=== PATIENT | male | born 1945 | race Caucasian/White ===

== ENCOUNTER → 2017-04-03 | Outpatient (CLI) | payer MEDICARE ==
[~2017-04-03] MED LIST: AMLODIPINE10 MG PO; ASPIRIN81 M1 PO; ENALAPRIL MALEA10 MG PO; GLIPIZIDE5 MG PO; JANUVIA50 MG PO; LABETALOL100 MG PO; METFORMIN500 MG PO; QUINAPRIL40 MG PO; SIMVASTATIN40 MG PO; VICODIN ES 7501 TAB PO; ZOFRAN ODT4 MG SL
[2017-04-03 09:42] LABS: HEMOGLOBIN A1c 8.3 % (4.8-5.6)
[2017-04-03 09:55] LABS: POTASSIUM 4.5 mmol/L (3.5-5.1)
[2017-04-03 10:01] LABS: ALBUMIN 3.6 gm/dl (3.1-4.5); BILIRUBIN, TOTAL 0.4 mg/dl (0.2-1.0); TOTAL PROTEIN 7.3 gm/dL (6.4-8.2)
== END | disposition home or self-care (01) ==
LOC: LAB 09:09
PROVIDERS: Family Medicine
DX: I10 Essential (primary) hypertension (principal); E11.9 Type 2 diabetes mellitus without complications; E78.00 Pure hypercholesterolemia, unspecified

== ENCOUNTER → 2017-07-19 | Outpatient (CLI) | payer MEDICARE ==
[2017-07-19 12:06] LABS: ALBUMIN 3.7 gm/dl (3.1-4.5); CREATININE 1.52 mg/dL (0.70-1.30); POTASSIUM 4.3 mmol/L (3.5-5.1); TOTAL PROTEIN 7.6 gm/dL (6.4-8.2)
== END | disposition home or self-care (01) ==
LOC: LAB 10:57
PROVIDERS: Family Medicine
DX: E11.9 Type 2 diabetes mellitus without complications (principal); E78.00 Pure hypercholesterolemia, unspecified; E55.9 Vitamin D deficiency, unspecified; I10 Essential (primary) hypertension

== ENCOUNTER → 2017-09-25 | Outpatient (CLI) | payer MEDICARE ==
[2017-09-25 12:13] LABS: ALBUMIN 3.8 gm/dl (3.1-4.5); CREATININE 1.47 mg/dL (0.70-1.30); POTASSIUM 4.5 mmol/L (3.5-5.1)
[2017-09-25 12:21] LABS: TOTAL PROTEIN 7.9 gm/dL (6.4-8.2)
== END | disposition home or self-care (01) ==
LOC: LAB 10:52
PROVIDERS: Family Medicine
DX: E78.00 Pure hypercholesterolemia, unspecified (principal); I10 Essential (primary) hypertension; E11.9 Type 2 diabetes mellitus without complications

== ENCOUNTER → 2017-12-21 | Outpatient (CLI) | payer MEDICARE ==
[2017-12-21 12:03] LABS: ALBUMIN 3.9 gm/dl (3.1-4.5); CREATININE 1.65 mg/dL (0.70-1.30); POTASSIUM 4.7 mmol/L (3.5-5.1)
== END | disposition home or self-care (01) ==
LOC: LAB 11:16
PROVIDERS: Family Medicine
DX: E11.9 Type 2 diabetes mellitus without complications (principal); E78.00 Pure hypercholesterolemia, unspecified; I10 Essential (primary) hypertension; E55.9 Vitamin D deficiency, unspecified

== ENCOUNTER → 2018-04-18 | Outpatient (CLI) | payer MEDICARE ==
[2018-04-18 11:17] LABS: ALBUMIN 3.6 gm/dl (3.1-4.5); CREATININE 1.69 mg/dL (0.70-1.30); POTASSIUM 4.6 mmol/L (3.5-5.1)
[2018-04-18 11:18] LABS: TOTAL PROTEIN 7.3 gm/dL (6.4-8.2)
== END | disposition home or self-care (01) ==
LOC: LAB 10:14
PROVIDERS: Family Medicine
DX: I10 Essential (primary) hypertension (principal); E11.9 Type 2 diabetes mellitus without complications; E78.00 Pure hypercholesterolemia, unspecified

== ENCOUNTER → 2018-07-23 | Outpatient (CLI) | payer MEDICARE ==
[2018-07-23 11:19] LABS: ALBUMIN 4.1 gm/dl (3.1-4.5); CREATININE 1.46 mg/dL (0.70-1.30); POTASSIUM 4.4 mmol/L (3.5-5.1)
== END ==
LOC: LAB 10:13
PROVIDERS: Family Medicine
DX: I10 Essential (primary) hypertension (principal); E11.9 Type 2 diabetes mellitus without complications; E78.00 Pure hypercholesterolemia, unspecified

== ENCOUNTER → 2019-05-07 | Outpatient (CLI) | payer MEDICARE ==
[2019-05-07 11:14] LABS: HEMATOCRIT 43.9 % (42.0-52.0); HEMOGLOBIN 14.7 g/dl (14.0-18.0); MEAN CORPUSCULAR HGB 30.1 pg (27.0-31.0); MEAN CORPUSCULAR HGB CONC 33.5 g/dl (33.0-37.0); MEAN PLATELET VOLUME 11.1 fl (9.6-12.3); RED BLOOD COUNT 4.88 10*6/uL (4.50-5.90); RED CELL DISTRI WIDTH 12.5 % (0-14.5); WHITE BLOOD COUNT 6.1 10*3/uL (4.8-10.8)
[2019-05-07 11:50] LABS: ALBUMIN 3.7 gm/dl (3.1-4.5); CREATININE 1.54 mg/dL (0.70-1.30); POTASSIUM 4.7 mmol/L (3.5-5.1); TOTAL PROTEIN 7.7 gm/dL (6.4-8.2)
== END | disposition home or self-care (01) ==
LOC: LAB 10:44
PROVIDERS: Family Medicine
DX: E78.00 Pure hypercholesterolemia, unspecified (principal); I10 Essential (primary) hypertension; E11.9 Type 2 diabetes mellitus without complications; R53.83 Other fatigue; M19.90 Unspecified osteoarthritis, unspecified site

== ENCOUNTER → 2019-08-14 | Outpatient (CLI) | payer MEDICARE ==
[2019-08-14 12:18] LABS: HEMATOCRIT 42.6 % (42.0-52.0); HEMOGLOBIN 14.3 g/dl (14.0-18.0); MEAN CELL VOLUME 87.8 fl (80.0-94.0); MEAN CORPUSCULAR HGB 29.5 pg (27.0-31.0); MEAN CORPUSCULAR HGB CONC 33.6 g/dl (33.0-37.0); MEAN PLATELET VOLUME 10.8 fl (9.6-12.3); RED BLOOD COUNT 4.85 10*6/uL (4.50-5.90); RED CELL DISTRI WIDTH 11.9 % (0-14.5); WHITE BLOOD COUNT 4.9 10*3/uL (4.8-10.8)
[2019-08-14 12:32] LABS: ALBUMIN 3.7 gm/dl (3.1-4.5); CREATININE 1.46 mg/dL (0.70-1.30); POTASSIUM 4.7 mmol/L (3.5-5.1); TOTAL PROTEIN 7.4 gm/dL (6.4-8.2)
== END | disposition home or self-care (01) ==
LOC: LAB 11:28
PROVIDERS: Family Medicine
DX: E11.9 Type 2 diabetes mellitus without complications (principal); I10 Essential (primary) hypertension; E55.9 Vitamin D deficiency, unspecified; E78.00 Pure hypercholesterolemia, unspecified; M19.90 Unspecified osteoarthritis, unspecified site

== ENCOUNTER → 2019-11-01 | Outpatient (CLI) | payer MEDICARE ==
[2019-11-01 09:17] LABS: HEMATOCRIT 44.4 % (42.0-52.0); HEMOGLOBIN 14.8 g/dl (14.0-18.0); MEAN CELL VOLUME 88.3 fl (80.0-94.0); MEAN CORPUSCULAR HGB 29.4 pg (27.0-31.0); MEAN CORPUSCULAR HGB CONC 33.3 g/dl (33.0-37.0); MEAN PLATELET VOLUME 11.1 fl (9.6-12.3); RED BLOOD COUNT 5.03 10*6/uL (4.50-5.90); RED CELL DISTRI WIDTH 11.9 % (0-14.5); WHITE BLOOD COUNT 6.4 10*3/uL (4.8-10.8)
[2019-11-01 09:46] LABS: ALBUMIN 3.5 gm/dl (3.1-4.5); CREATININE 1.77 mg/dL (0.70-1.30); POTASSIUM 4.5 mmol/L (3.5-5.1); TOTAL PROTEIN 7.1 gm/dL (6.4-8.2)
== END | disposition home or self-care (01) ==
LOC: LAB 09:00
PROVIDERS: Family Medicine
DX: I10 Essential (primary) hypertension (principal); E11.9 Type 2 diabetes mellitus without complications; E55.9 Vitamin D deficiency, unspecified

== ENCOUNTER → 2019-12-16 | Outpatient (CLI) | payer MEDICARE | LOC: CT 08:48 | DX: K40.20 Bilateral inguinal hernia, without obstruction or gangrene, not specified as recurrent (principal); N40.0 Benign prostatic hyperplasia without lower urinary tract symptoms; K57.30 Diverticulosis of large intestine without perforation or abscess without bleeding; K44.9 Diaphragmatic hernia without obstruction or gangrene; I70.0 Atherosclerosis of aorta; M54.9 Dorsalgia, unspecified ==

== ENCOUNTER → 2020-08-07 | Outpatient (CLI) | payer MEDICARE ==
[2020-08-07 11:31] LABS: HEMATOCRIT 42.6 % (42.0-52.0); MEAN CELL VOLUME 86.4 fl (80.0-94.0); MEAN CORPUSCULAR HGB 28.4 pg (27.0-31.0); MEAN CORPUSCULAR HGB CONC 32.9 g/dl (33.0-37.0); MEAN PLATELET VOLUME 10.5 fl (9.6-12.3); RED BLOOD COUNT 4.93 10*6/uL (4.50-5.90); RED CELL DISTRI WIDTH 12.7 % (0-14.5); WHITE BLOOD COUNT 6.6 10*3/uL (4.8-10.8)
[2020-08-07 11:49] LABS: ALBUMIN 3.5 gm/dl (3.1-4.5); CREATININE 1.54 mg/dL (0.70-1.30); POTASSIUM 4.4 mmol/L (3.5-5.1); TOTAL PROTEIN 7.4 gm/dL (6.4-8.2)
== END | disposition home or self-care (01) ==
LOC: LAB 10:59
PROVIDERS: ATTEND Family Medicine
DX: Z12.5 Encounter for screening for malignant neoplasm of prostate (principal); I10 Essential (primary) hypertension; E11.9 Type 2 diabetes mellitus without complications; E78.00 Pure hypercholesterolemia, unspecified

== ENCOUNTER → 2021-02-25 | Outpatient (CLI) | payer MEDICARE ==
[2021-02-25 11:08] LABS: HEMATOCRIT 42.4 % (42.0-52.0); MEAN CELL VOLUME 86.5 fl (80.0-94.0); MEAN CORPUSCULAR HGB 28.6 pg (27.0-31.0); MEAN PLATELET VOLUME 10.4 fl (9.6-12.3); RED BLOOD COUNT 4.9 10*6/uL (4.50-5.90); RED CELL DISTRI WIDTH 12.2 % (0-14.5); WHITE BLOOD COUNT 6.3 10*3/uL (4.8-10.8)
[2021-02-25 11:47] LABS: ALBUMIN 3.2 gm/dl (3.1-4.5); CREATININE 1.55 mg/dL (0.70-1.30); POTASSIUM 4.2 mmol/L (3.5-5.1)
== END | disposition home or self-care (01) ==
LOC: LAB 10:32
PROVIDERS: ATTEND Family Medicine
DX: M17.0 Bilateral primary osteoarthritis of knee (principal); I70.203 Unspecified atherosclerosis of native arteries of extremities, bilateral legs; E11.9 Type 2 diabetes mellitus without complications; I10 Essential (primary) hypertension; E78.00 Pure hypercholesterolemia, unspecified; M25.761 Osteophyte, right knee; M25.762 Osteophyte, left knee

== ENCOUNTER → 2021-05-27 | Outpatient (CLI) | payer MEDICARE ==
[2021-05-27 11:06] LABS: ALBUMIN 3.2 gm/dl (3.1-4.5)
[2021-05-27 11:10] LABS: CREATININE 1.7 mg/dL (0.70-1.30); TOTAL PROTEIN 7.1 gm/dL (6.4-8.2)
== END | disposition home or self-care (01) ==
LOC: LAB 10:16
PROVIDERS: ATTEND Family Medicine
DX: E11.9 Type 2 diabetes mellitus without complications (principal); I10 Essential (primary) hypertension; E78.00 Pure hypercholesterolemia, unspecified

== ENCOUNTER 2021-08-16 14:44 | Inpatient (IN) | payer MEDICARE ==
[~2021-08-16] VITALS: Ht 170.1 cm; Wt 91.3 kg
[2021-08-16 15:04] VITALS: BP 180/84
[2021-08-16 15:18] LABS: BASO % 0.3 % (0.0-1.0); HEMATOCRIT 39.4 % (42.0-52.0); LYMPH # 0.5 10*3/uL (1.3-4.4); LYMPH % 12.7 % (27.0-41.0); MEAN CELL VOLUME 85.3 fl (80.0-94.0); MEAN CORPUSCULAR HGB 28.6 pg (27.0-31.0); MEAN CORPUSCULAR HGB CONC 33.5 g/dl (33.0-37.0); MEAN PLATELET VOLUME 10.3 fl (9.6-12.3); MONO # 0.4 10*3/uL (0.1-1.0); MONO % 10.3 % (3.0-9.0); NEUT % 76.2 % (47.0-73.0); PLATELET COUNT AUTOMATED 190 10*3/uL (130-400); RED BLOOD COUNT 4.62 10*6/uL (4.50-5.90); RED CELL DISTRI WIDTH 12.7 % (0-14.5); WHITE BLOOD COUNT 3.9 10*3/uL (4.8-10.8)
[2021-08-16 15:35] LABS: ACT PARTIAL THROMBO TIME 37.3 SECONDS (20.0-32.1); ALBUMIN 2.4 gm/dl (3.1-4.5); CREATININE 2.19 mg/dL (0.70-1.30); POTASSIUM 4.2 mmol/L (3.5-5.1); TOTAL PROTEIN 6.5 gm/dL (6.4-8.2)
[2021-08-16 15:43] LABS: TROPONIN I 0.053 ng/ml (<0.045)
[2021-08-16] MEDS ORDERED: LABETALOL HCL100 MG PO (15:51)
[2021-08-16] MEDS ORDERED: VASOTEC10 MG PO (15:52)
[2021-08-16] MEDS ORDERED: NORVASC10 MG PO (15:52)
[2021-08-16] MEDS ORDERED: AMARYL4 MG PO (15:53)
[2021-08-16] MEDS ORDERED: RYBELSUS7 MG PO (15:53)
[2021-08-16] MEDS ORDERED: GLIPIZIDE10 M1 PO (15:53)
[2021-08-16] MEDS ORDERED: OZEMPIC0.25 MG/01 SQ (15:54)
[2021-08-16 16:00] VITALS: BP 150/47
[2021-08-16 18:30] VITALS: BP 166/81
[2021-08-16 20:00] VITALS: BP 150/47; BP 158/97
[2021-08-17] VITALS: BP 149/46
[2021-08-17 08:00] VITALS: BP 166/64
[2021-08-17 12:00] VITALS: BP 113/53
[2021-08-17 16:00] VITALS: BP 139/56
[2021-08-17 20:00] VITALS: BP 136/56
[2021-08-18] VITALS: BP 152/67
[2021-08-18 05:58] LABS: ALBUMIN 2.1 gm/dl (3.1-4.5); CREATININE 2.49 mg/dL (0.70-1.30); POTASSIUM 4.6 mmol/L (3.5-5.1); TOTAL PROTEIN 5.9 gm/dL (6.4-8.2)
[2021-08-18 06:17] LABS: BASO % 0.2 % (0.0-1.0); HEMATOCRIT 36.6 % (42.0-52.0); LYMPH # 0.5 10*3/uL (1.3-4.4); LYMPH % 9.5 % (27.0-41.0); MEAN CELL VOLUME 86.3 fl (80.0-94.0); MEAN CORPUSCULAR HGB 28.5 pg (27.0-31.0); MEAN CORPUSCULAR HGB CONC 33.1 g/dl (33.0-37.0); MONO # 0.6 10*3/uL (0.1-1.0); MONO % 10.6 % (3.0-9.0); NEUT # 4.3 10*3/uL (2.3-7.9); NEUT % 79.2 % (47.0-73.0); PLATELET COUNT AUTOMATED 209 10*3/uL (130-400); RED BLOOD COUNT 4.24 10*6/uL (4.50-5.90); RED CELL DISTRI WIDTH 12.9 % (0-14.5); WHITE BLOOD COUNT 5.5 10*3/uL (4.8-10.8)
[2021-08-18 08:00] VITALS: BP 122/96
[2021-08-18 12:00] VITALS: BP 140/69
[2021-08-18 16:00] VITALS: BP 127/98
[2021-08-18 18:00] VITALS: BP 127/98
[2021-08-19] VITALS: BP 140/54
[2021-08-19 06:18] LABS: HEMATOCRIT 38.3 % (42.0-52.0); LYMPH # 0.4 10*3/uL (1.3-4.4); MEAN CELL VOLUME 85.7 fl (80.0-94.0); MEAN CORPUSCULAR HGB 28.4 pg (27.0-31.0); MEAN CORPUSCULAR HGB CONC 33.2 g/dl (33.0-37.0); MEAN PLATELET VOLUME 10.5 fl (9.6-12.3); MONO # 0.8 10*3/uL (0.1-1.0); MONO % 11.1 % (3.0-9.0); NEUT # 5.7 10*3/uL (2.3-7.9); NEUT % 82.5 % (47.0-73.0); PLATELET COUNT AUTOMATED 235 10*3/uL (130-400); RED BLOOD COUNT 4.47 10*6/uL (4.50-5.90); RED CELL DISTRI WIDTH 12.8 % (0-14.5)
[2021-08-19 06:39] LABS: POTASSIUM 4.9 mmol/L (3.5-5.1)
[2021-08-19 06:46] LABS: ALBUMIN 2.2 gm/dl (3.1-4.5); CREATININE 2.23 mg/dL (0.70-1.30); TOTAL PROTEIN 6.1 gm/dL (6.4-8.2)
[2021-08-19 08:00] VITALS: BP 135/80
[2021-08-19 16:00] VITALS: BP 145/60
[2021-08-19 20:00] VITALS: BP 154/67
[2021-08-19 20:45] LABS: BILIRUBIN Negative (Negative); BLOOD 1+ (Negative); CLARITY Clear (Clear); COLOR Yellow (Yellow); GLUCOSE Negative (Negative); KETONE Negative (Negative)
[2021-08-19 20:46] LABS: BACTERIA 2+; LEUKO ESTERASE Negative (Negative); NITRITE Negative (Negative)
[2021-08-19 20:48] LABS: URINE CREATININE RANDOM 70.1 mg/dL
[2021-08-20] VITALS: BP 134/50
[2021-08-20 04:00] VITALS: BP 145/70
[2021-08-20 05:51] LABS: ALBUMIN 2.1 gm/dl (3.1-4.5); CREATININE 1.97 mg/dL (0.70-1.30); POTASSIUM 4.7 mmol/L (3.5-5.1)
[2021-08-20 06:04] LABS: BASO % 0.1 % (0.0-1.0); HEMATOCRIT 39.2 % (42.0-52.0); LYMPH # 0.4 10*3/uL (1.3-4.4); LYMPH % 5.8 % (27.0-41.0); MEAN CELL VOLUME 87.7 fl (80.0-94.0); MEAN CORPUSCULAR HGB 28.2 pg (27.0-31.0); MEAN CORPUSCULAR HGB CONC 32.1 g/dl (33.0-37.0); MEAN PLATELET VOLUME 10.8 fl (9.6-12.3); MONO # 0.6 10*3/uL (0.1-1.0); MONO % 7.5 % (3.0-9.0); NEUT # 6.4 10*3/uL (2.3-7.9); NEUT % 86.1 % (47.0-73.0); PLATELET COUNT AUTOMATED 237 10*3/uL (130-400); RED BLOOD COUNT 4.47 10*6/uL (4.50-5.90); RED CELL DISTRI WIDTH 13.1 % (0-14.5); WHITE BLOOD COUNT 7.5 10*3/uL (4.8-10.8)
[2021-08-20 08:00] VITALS: BP 156/78
[2021-08-20 12:00] VITALS: BP 184/82
[2021-08-20 17:15] VITALS: BP 114/44
[2021-08-20 20:00] VITALS: BP 164/73
[2021-08-21] VITALS: BP 155/61
[2021-08-21 04:00] VITALS: BP 150/76
[2021-08-21 05:49] LABS: POTASSIUM 4.8 mmol/L (3.5-5.1)
[2021-08-21 05:53] LABS: CREATININE 1.79 mg/dL (0.70-1.30); TOTAL PROTEIN 5.8 gm/dL (6.4-8.2)
[2021-08-21 06:09] LABS: HEMATOCRIT 38.6 % (42.0-52.0); MEAN CELL VOLUME 87.1 fl (80.0-94.0); MEAN CORPUSCULAR HGB 28.4 pg (27.0-31.0); MEAN CORPUSCULAR HGB CONC 32.6 g/dl (33.0-37.0); MEAN PLATELET VOLUME 10.4 fl (9.6-12.3); PLATELET COUNT AUTOMATED 229 10*3/uL (130-400); RED BLOOD COUNT 4.43 10*6/uL (4.50-5.90); RED CELL DISTRI WIDTH 13.2 % (0-14.5); WHITE BLOOD COUNT 9.3 10*3/uL (4.8-10.8)
[2021-08-21 06:53] LABS: BURR CELLS FEW; PLATELET SUFFICIENCY NORMAL (NORMAL); TOTAL CELLS COUNTED 100 #CELLS
[2021-08-21 08:00] VITALS: BP 144/79
[2021-08-21 11:34] VITALS: BP 102/68
[2021-08-21 16:00] VITALS: BP 171/63
[2021-08-21 17:26] LABS: BILIRUBIN Negative (Negative); BLOOD 2+ (Negative); CLARITY Cloudy (Clear); COLOR Yellow (Yellow); GLUCOSE Negative (Negative); KETONE Negative (Negative); LEUKO ESTERASE Negative (Negative); NITRITE Negative (Negative)
[2021-08-21 17:37] LABS: BACTERIA 1+
[2021-08-21 20:00] VITALS: BP 170/62
[2021-08-22] VITALS (72 sets, daily range): BP systolic 50–237; BP diastolic 32–79
[2021-08-22 03:51] LABS: ARTERIAL BLOOD GAS PH 7.335 (7.35-7.45); ARTERIAL BLOOD GAS PO2 40.7 (80-90)
[2021-08-22 05:57] LABS: ALBUMIN 1.7 gm/dl (3.1-4.5)
[2021-08-22 06:01] LABS: HEMATOCRIT 41.4 % (42.0-52.0); MEAN CELL VOLUME 88.8 fl (80.0-94.0); MEAN CORPUSCULAR HGB 28.5 pg (27.0-31.0); MEAN CORPUSCULAR HGB CONC 32.1 g/dl (33.0-37.0); MEAN PLATELET VOLUME 10.9 fl (9.6-12.3); PLATELET COUNT AUTOMATED 203 10*3/uL (130-400); RED BLOOD COUNT 4.66 10*6/uL (4.50-5.90); RED CELL DISTRI WIDTH 13.5 % (0-14.5); WHITE BLOOD COUNT 3.2 10*3/uL (4.8-10.8)
[2021-08-22 06:02] LABS: CREATININE 1.86 mg/dL (0.70-1.30); TOTAL PROTEIN 5.6 gm/dL (6.4-8.2)
[2021-08-22 06:26] LABS: ATYPICAL LYMPHS 1 % (0-0); BURR CELLS MODERATE; PLATELET SUFFICIENCY NORMAL (NORMAL); TOTAL CELLS COUNTED 100 #CELLS
[2021-08-22 07:02] LABS: ABG BASE EXCESS -11.2 mmol/L (-2.0-2.0)
[2021-08-22 07:03] LABS: ARTERIAL BLOOD GAS PH 7.163 (7.35-7.45)
[2021-08-22 07:13] LABS: FERRITIN 1519.9 ng/mL (22.0-322.0)
[2021-08-22 15:54] LABS: ABG BASE EXCESS -11.3 mmol/L (-2.0-2.0); ARTERIAL BLOOD GAS PH 7.004 (7.35-7.45)
[2021-08-22 19:19] LABS: ARTERIAL BLOOD GAS PO2 50.5 (80-90)
[2021-08-22 19:20] LABS: ARTERIAL BLOOD GAS PH 7.054 (7.35-7.45)
[2021-08-22 19:21] LABS: ABG BASE EXCESS -8.9 mmol/L (-2.0-2.0)
[2021-08-23] VITALS (31 sets, daily range): BP systolic 118–179; BP diastolic 46–58
[2021-08-23 06:02] LABS: ALBUMIN 1.4 gm/dl (3.1-4.5); CREATININE 4.09 mg/dL (0.70-1.30); POTASSIUM 5.5 mmol/L (3.5-5.1); TOTAL PROTEIN 4.6 gm/dL (6.4-8.2)
[2021-08-23 06:10] LABS: HEMATOCRIT 32.7 % (42.0-52.0); MEAN CELL VOLUME 88.9 fl (80.0-94.0); MEAN CORPUSCULAR HGB 28.5 pg (27.0-31.0); MEAN CORPUSCULAR HGB CONC 32.1 g/dl (33.0-37.0); MEAN PLATELET VOLUME 11.4 fl (9.6-12.3); PLATELET COUNT AUTOMATED 247 10*3/uL (130-400); RED BLOOD COUNT 3.68 10*6/uL (4.50-5.90); RED CELL DISTRI WIDTH 13.7 % (0-14.5); WHITE BLOOD COUNT 7.7 10*3/uL (4.8-10.8)
[2021-08-23 06:44] LABS: PLATELET SUFFICIENCY NORMAL (NORMAL); TOTAL CELLS COUNTED 100 #CELLS
[2021-08-23 07:13] LABS: ARTERIAL BLOOD GAS PH 7.309 (7.35-7.45); ARTERIAL BLOOD GAS PO2 51.9 (80-90)
[2021-08-23 07:14] LABS: ABG BASE EXCESS -6.5 mmol/L (-2.0-2.0)
[2021-08-23 07:53] LABS: ABG BASE EXCESS -5.9 mmol/L (-2.0-2.0); ARTERIAL BLOOD GAS PH 7.311 (7.35-7.45); ARTERIAL BLOOD GAS PO2 55.3 (80-90)
[2021-08-23 12:36] LABS: ARTERIAL BLOOD GAS PH 7.289 (7.35-7.45); ARTERIAL BLOOD GAS PO2 62.3 (80-90)
[2021-08-23 12:37] LABS: ABG BASE EXCESS -6.1 mmol/L (-2.0-2.0)
[2021-08-24] VITALS (12 sets, daily range): BP systolic 101–162; BP diastolic 45–78
[2021-08-24 06:00] LABS: ALBUMIN 1.4 gm/dl (3.1-4.5); CREATININE 4.89 mg/dL (0.70-1.30); TOTAL PROTEIN 5.1 gm/dL (6.4-8.2)
[2021-08-24 06:16] LABS: HEMATOCRIT 30.9 % (42.0-52.0); MEAN CELL VOLUME 86.8 fl (80.0-94.0); MEAN CORPUSCULAR HGB 28.7 pg (27.0-31.0); MEAN PLATELET VOLUME 11.3 fl (9.6-12.3); PLATELET COUNT AUTOMATED 189 10*3/uL (130-400); RED BLOOD COUNT 3.56 10*6/uL (4.50-5.90); RED CELL DISTRI WIDTH 13.6 % (0-14.5); WHITE BLOOD COUNT 7.3 10*3/uL (4.8-10.8)
[2021-08-24 06:21] LABS: ARTERIAL BLOOD GAS PH 7.306 (7.35-7.45); ARTERIAL BLOOD GAS PO2 58.3 (80-90)
[2021-08-24 06:23] LABS: ABG BASE EXCESS -8.1 mmol/L (-2.0-2.0)
[2021-08-24 07:05] LABS: BURR CELLS MODERATE; TOTAL CELLS COUNTED 100 #CELLS
[2021-08-24 07:06] LABS: PLATELET SUFFICIENCY NORMAL (NORMAL); ROULEAUX SLIGHT
[2021-08-24 07:41] LABS: ALBUMIN 1.4 gm/dl (3.1-4.5); CREATININE 4.87 mg/dL (0.70-1.30); POTASSIUM 5.9 mmol/L (3.5-5.1)
[2021-08-24 08:08] LABS: CREATININE,URINE 54.5 mg/dL (Not Estab.)
[2021-08-25] VITALS (12 sets, daily range): BP systolic 100–144; BP diastolic 36–62
[2021-08-25 03:56] LABS: ALBUMIN 1.6 gm/dl (3.1-4.5); CREATININE 4.86 mg/dL (0.70-1.30); TOTAL PROTEIN 5.5 gm/dL (6.4-8.2)
[2021-08-25 03:59] LABS: HEMATOCRIT 35.6 % (42.0-52.0); MEAN CELL VOLUME 88.6 fl (80.0-94.0); MEAN CORPUSCULAR HGB 28.9 pg (27.0-31.0); MEAN CORPUSCULAR HGB CONC 32.6 g/dl (33.0-37.0); MEAN PLATELET VOLUME 11.5 fl (9.6-12.3); NUCLEATED RED BLOOD CELL 0.1 % (0.0-0.0); RED BLOOD COUNT 4.02 10*6/uL (4.50-5.90); RED CELL DISTRI WIDTH 14.1 % (0-14.5); WHITE BLOOD COUNT 18.3 10*3/uL (4.8-10.8)
[2021-08-25 04:02] LABS: PLATELET COUNT AUTOMATED 269 10*3/uL (130-400)
[2021-08-25 04:09] LABS: POTASSIUM 6.6 mmol/L (3.5-5.1)
[2021-08-25 04:18] LABS: PLATELET SUFFICIENCY NORMAL (NORMAL); TOTAL CELLS COUNTED 100 #CELLS
[2021-08-25 04:19] LABS: BURR CELLS MODERATE
[2021-08-25 11:32] LABS: ARTERIAL BLOOD GAS PO2 72.3 (80-90)
[2021-08-25 11:35] LABS: ABG BASE EXCESS -10.9 mmol/L (-2.0-2.0); ARTERIAL BLOOD GAS PH 7.05 (7.35-7.45)
[2021-08-25 13:27] LABS: ARTERIAL BLOOD GAS PO2 81.9 (80-90)
[2021-08-25 13:30] LABS: ABG BASE EXCESS -6.8 mmol/L (-2.0-2.0)
[2021-08-25 13:31] LABS: ARTERIAL BLOOD GAS PH 7.125 (7.35-7.45)
[2021-08-25 16:19] LABS: ARTERIAL BLOOD GAS PO2 66.4 (80-90)
[2021-08-25 16:20] LABS: ARTERIAL BLOOD GAS PH 7.17 (7.35-7.45)
[2021-08-25 16:21] LABS: ABG BASE EXCESS -6.5 mmol/L (-2.0-2.0)
[2021-08-25 16:31] LABS: ALBUMIN 1.8 gm/dl (3.1-4.5); CREATININE 3.19 mg/dL (0.70-1.30)
[2021-08-25 16:48] LABS: POTASSIUM 5.1 mmol/L (3.5-5.1)
[2021-08-25 19:14] LABS: ARTERIAL BLOOD GAS PH 7.252 (7.35-7.45); ARTERIAL BLOOD GAS PO2 72.1 (80-90)
[2021-08-25 19:16] LABS: ABG BASE EXCESS -7.4 mmol/L (-2.0-2.0)
[2021-08-25 19:39] LABS: CREATININE 3.52 mg/dL (0.70-1.30); POTASSIUM 5.2 mmol/L (3.5-5.1)
[2021-08-26] VITALS (13 sets, daily range): BP systolic 101–145; BP diastolic 35–49
[2021-08-26 01:47] LABS: ARTERIAL BLOOD GAS PO2 55.3 (80-90)
[2021-08-26 01:48] LABS: ABG BASE EXCESS -6.2 mmol/L (-2.0-2.0)
[2021-08-26 01:50] LABS: ARTERIAL BLOOD GAS PH 7.153 (7.35-7.45)
[2021-08-26 06:41] LABS: ALBUMIN 1.8 gm/dl (3.1-4.5); CREATININE 4.39 mg/dL (0.70-1.30); TOTAL PROTEIN 5.2 gm/dL (6.4-8.2)
[2021-08-26 06:54] LABS: ACT PARTIAL THROMBO TIME 56.5 SECONDS (20.0-32.1)
[2021-08-26 07:57] LABS: ARTERIAL BLOOD GAS PO2 71.3 (80-90)
[2021-08-26 07:58] LABS: ABG BASE EXCESS -6.9 mmol/L (-2.0-2.0)
[2021-08-26 08:00] LABS: ARTERIAL BLOOD GAS PH 7.173 (7.35-7.45)
[2021-08-26 09:41] LABS: ABG BASE EXCESS -4.7 mmol/L (-2.0-2.0); ARTERIAL BLOOD GAS PH 7.21 (7.35-7.45); ARTERIAL BLOOD GAS PO2 70.9 (80-90)
[2021-08-26 10:19] LABS: HEMATOCRIT 33.8 % (42.0-52.0); MEAN CELL VOLUME 91.1 fl (80.0-94.0); MEAN CORPUSCULAR HGB 28.3 pg (27.0-31.0); MEAN CORPUSCULAR HGB CONC 31.1 g/dl (33.0-37.0); MEAN PLATELET VOLUME 11.9 fl (9.6-12.3); NUCLEATED RED BLOOD CELL 0.1 % (0.0-0.0); RED BLOOD COUNT 3.71 10*6/uL (4.50-5.90); RED CELL DISTRI WIDTH 14.2 % (0-14.5); WHITE BLOOD COUNT 14.4 10*3/uL (4.8-10.8)
[2021-08-26 10:22] LABS: PLATELET COUNT AUTOMATED 178 10*3/uL (130-400)
[2021-08-26 10:35] LABS: BURR CELLS MODERATE; PLATELET SUFFICIENCY NORMAL (NORMAL); TOTAL CELLS COUNTED 100 #CELLS
[2021-08-26 14:52] LABS: ARTERIAL BLOOD GAS PH 7.229 (7.35-7.45)
[2021-08-26 14:56] LABS: ABG BASE EXCESS -5.4 mmol/L (-2.0-2.0)
[2021-08-27] VITALS (23 sets, daily range): BP systolic 53–159; BP diastolic 14–51
[2021-08-27 05:32] LABS: ALBUMIN 1.8 gm/dl (3.1-4.5); CREATININE 4.44 mg/dL (0.70-1.30); POTASSIUM 4.2 mmol/L (3.5-5.1)
[2021-08-27 06:19] LABS: HEMATOCRIT 27.3 % (42.0-52.0); MEAN CORPUSCULAR HGB 28.3 pg (27.0-31.0); MEAN CORPUSCULAR HGB CONC 32.6 g/dl (33.0-37.0); MEAN PLATELET VOLUME 12.5 fl (9.6-12.3); NUCLEATED RED BLOOD CELL 0.3 % (0.0-0.0); PLATELET COUNT AUTOMATED 144 10*3/uL (130-400); RED BLOOD COUNT 3.14 10*6/uL (4.50-5.90); WHITE BLOOD COUNT 11.7 10*3/uL (4.8-10.8)
[2021-08-27 06:34] LABS: MEAN CELL VOLUME 86.9 fl (80.0-94.0)
[2021-08-27 07:28] LABS: PLATELET SUFFICIENCY NORMAL (NORMAL); TOTAL CELLS COUNTED 100 #CELLS
[2021-08-27 07:29] LABS: BURR CELLS FEW
[2021-08-27 07:52] LABS: ABG BASE EXCESS -0.9 mmol/L (-2.0-2.0); ARTERIAL BLOOD GAS PH 7.289 (7.35-7.45); ARTERIAL BLOOD GAS PO2 59.9 (80-90)
[2021-08-27 09:58] LABS: ARTERIAL BLOOD GAS PO2 55.4 (80-90)
[2021-08-27 09:59] LABS: ABG BASE EXCESS -9.2 mmol/L (-2.0-2.0)
[2021-08-27 10:00] LABS: ARTERIAL BLOOD GAS PH 7.163 (7.35-7.45)
[2021-08-27 12:07] LABS: HEP B CORE AB, IGM Negative (Negative); HEPATITIS B SURFACE AG Negative (Negative); HEPATITIS C VIRUS ANTIBODY <0.1 s/co (0.0-0.9)
== END 2021-08-27 11:07 | DRG 207 ==
LOC: ED 14:44 → EDHOLD 17:02 → 4E 17:02 → ICCU 17:02 → 4E 17:49 → ICCU 08-19 12:21
PROVIDERS: Emergency Medicine; Internal Medicine Critical Care Medicine; Internal Medicine Nephrology; ADMIT Internal Medicine; ATTEND Internal Medicine
PROC: 5A09357 Assistance with Respiratory Ventilation, Less than 24 Consecutive Hours, Continuous Positive Airway Pressure (ICD-10-PCS; 2021-08-16)
PROC: XW033E5 Introduction of Remdesivir Anti-infective into Peripheral Vein, Percutaneous Approach, New Technology Group 5 (ICD-10-PCS; 2021-08-17)
PROC: 5A09357 Assistance with Respiratory Ventilation, Less than 24 Consecutive Hours, Continuous Positive Airway Pressure (ICD-10-PCS; 2021-08-18)
PROC: 5A0935A Assistance with Respiratory Ventilation, Less than 24 Consecutive Hours, High Flow/Velocity Cannula (ICD-10-PCS; 2021-08-18)
PROC: 5A09357 Assistance with Respiratory Ventilation, Less than 24 Consecutive Hours, Continuous Positive Airway Pressure (ICD-10-PCS; 2021-08-19)
PROC: 5A09357 Assistance with Respiratory Ventilation, Less than 24 Consecutive Hours, Continuous Positive Airway Pressure (ICD-10-PCS; 2021-08-20)
PROC: 5A0935A Assistance with Respiratory Ventilation, Less than 24 Consecutive Hours, High Flow/Velocity Cannula (ICD-10-PCS; 2021-08-20)
PROC: 5A09457 Assistance with Respiratory Ventilation, 24-96 Consecutive Hours, Continuous Positive Airway Pressure (ICD-10-PCS; 2021-08-20)
PROC: XW033H5 Introduction of Tocilizumab into Peripheral Vein, Percutaneous Approach, New Technology Group 5 (ICD-10-PCS; 2021-08-21)
PROC: 0BH17EZ Insertion of Endotracheal Airway into Trachea, Via Natural or Artificial Opening (ICD-10-PCS; principal; 2021-08-22)
PROC: 5A1955Z Respiratory Ventilation, Greater than 96 Consecutive Hours (ICD-10-PCS; 2021-08-22)
PROC: 02HV33Z Insertion of Infusion Device into Superior Vena Cava, Percutaneous Approach (ICD-10-PCS; 2021-08-22)
PROC: B548ZZA Ultrasonography of Superior Vena Cava, Guidance (ICD-10-PCS; 2021-08-22)
PROC: 03HB33Z Insertion of Infusion Device into Right Radial Artery, Percutaneous Approach (ICD-10-PCS; 2021-08-22)
PROC: B34HZZZ Ultrasonography of Right Upper Extremity Arteries (ICD-10-PCS; 2021-08-22)
PROC: 06HY33Z Insertion of Infusion Device into Lower Vein, Percutaneous Approach (ICD-10-PCS; 2021-08-23)
PROC: 5A1D70Z Performance of Urinary Filtration, Intermittent, Less than 6 Hours Per Day (ICD-10-PCS; 2021-08-23)
PROC: 5A1D70Z Performance of Urinary Filtration, Intermittent, Less than 6 Hours Per Day (ICD-10-PCS; 2021-08-24)
PROC: 5A12012 Performance of Cardiac Output, Single, Manual (ICD-10-PCS; 2021-08-27)
DX: U07.1 COVID-19 (principal); J12.82 Pneumonia due to coronavirus disease 2019; J80 Acute respiratory distress syndrome; N17.0 Acute kidney failure with tubular necrosis; J15.9 Unspecified bacterial pneumonia; I47.2 Ventricular tachycardia; I24.8 Other forms of acute ischemic heart disease; E11.22 Type 2 diabetes mellitus with diabetic chronic kidney disease; N18.32 Chronic kidney disease, stage 3b; I95.9 Hypotension, unspecified; I46.9 Cardiac arrest, cause unspecified; E66.01 Morbid (severe) obesity due to excess calories; E83.39 Other disorders of phosphorus metabolism; E78.2 Mixed hyperlipidemia; E11.65 Type 2 diabetes mellitus with hyperglycemia; I12.9 Hypertensive chronic kidney disease with stage 1 through stage 4 chronic kidney disease, or unspecified chronic kidney disease; I25.10 Atherosclerotic heart disease of native coronary artery without angina pectoris; I48.0 Paroxysmal atrial fibrillation; E87.6 Hypokalemia; E83.51 Hypocalcemia; D64.9 Anemia, unspecified; E78.00 Pure hypercholesterolemia, unspecified